=== PATIENT | male | born 1980 | race African-American/Black ===

== ENCOUNTER 2016-11-17 06:17 | Emergency (ER) | payer MEDICAID, OTHER ==
[2016-11-17 07:02] VITALS: BP 130/82
--- NOTE | 2016-11-17 07:15 | RAD ---
Right RIBS with chest, 3 views, 11/17/2016: History: Rib pain There is a fracture of the posterolateral aspect of the right sixth rib. The fracture appears to be recent. No other rib abnormality is detected. There is no evidence of underlying pneumothorax, hemothorax or pulmonary infiltrate. The heart size is normal. IMPRESSION: Right sixth rib fracture
[2016-11-17] MEDS ORDERED: IBUP800T PO (07:18)
[2016-11-17] MEDS ORDERED: HYDR-971 PO (07:18)
--- NOTE | 2016-11-17 07:29 | ED.ADGEN ---
Past History Past Medical History: No Pertinent History Past Surgical History: Other Alcohol Use: None Drug Use: None Adult General Chief Complaint Chief Complaint Right side pain HPI HPI Patient is a 36 year old male who presents with right side pain. Patient does not recall any injury, fall, no significant cough, no fevers. He's had symptoms for several days. He's not attempted any symptom controlling medication. He denies any illness. Pain is localized to his right lateral side and lateral mid back, worsens with deep inspiration or cough Review of Systems Review of Systems Constitutional: Denies fever or chills [] Eyes: Denies change in visual acuity, redness, or eye pain [] HENT: Denies nasal congestion or sore throat [] Respiratory: Denies cough or shortness of breath [] Cardiovascular: No additional information not addressed in HPI [] GI: Denies abdominal pain, nausea, vomiting, bloody stools or diarrhea [] : Denies dysuria or hematuria [] Musculoskeletal: Denies back pain or joint pain [] Integument: Denies rash or skin lesions [] Neurologic: Denies headache, focal weakness or sensory changes [] Endocrine: Denies polyuria or polydipsia [] Allergies Allergies Allergies Coded Allergies Type Severity Reaction Last Updated Verified No Known Allergies Allergy Unknown 11/17/16 Yes Physical Exam Physical Exam Constitutional: Well developed, well nourished, no acute distress, non-toxic appearance. [] HENT: Normocephalic, atraumatic, bilateral external ears normal, oropharynx moist, no oral exudates, nose normal. [] Eyes: PERRLA, EOMI, conjunctiva normal, no discharge. [] Neck: Normal range of motion, no tenderness, supple, no stridor. [] Cardiovascular:Heart rate regular with regular rhythm, no murmur [] Lungs & Thorax: Bilateral breath sounds clear to auscultation, moderate air movement, tenderness to palpation in the right lateral mid back consistent with possible rib fracture Abdomen: soft, no tenderness, no masses, no pulsatile masses. [] Skin: Warm, dry, no erythema, no rash. [] Back: No midline tenderness, no CVA tenderness. [] Extremities: No tenderness, no cyanosis, no clubbing, ROM intact, no edema. [] Neurologic: Alert and oriented X 3, normal motor function, normal sensory function, no focal deficits noted. [] Psychologic: Affect normal, judgement normal, mood normal. [] Current Patient Data Vital Signs Vital Signs Date Time Temp Pulse Resp B/P Pulse Ox O2 Delivery O2 Flow Rate FiO2 11/17/16 07:02 68 20 130/82 100 Room Air 11/17/16 06:32 98.0 EKG EKG [] Radiology/Procedures Radiology/Procedures [] 5 view right rib and AP view reviewed by me shows sixth rib fracture, no significant displacement, no pneumothorax, no infiltrate, normal cardiac silhouette Course & Med Decision Making Course & Med Decision Making Pertinent Labs and Imaging studies reviewed. (See chart for details) Patient has rib fracture of unknown etiology. I counseled patient on pain medication and the need to take deep inspiration several times a day. Patient was given ibuprofen and [place], instructed not to drive while taking. Referral sheet for follow-up given to the patient. Final Impression Final Impression Acute rib fracture [] Problems: Dragon Disclaimer Dragon Disclaimer This electronic medical record was generated, in whole or in part, using a voice recognition dictation system. CORA PIERRE MD Nov 17, 2016 07:29
== END 2016-11-17 07:20 | disposition home or self-care (01) ==
LOC: ER 06:24
DX: S22.31XA Fracture of one rib, right side, initial encounter for closed fracture (principal); X58.XXXA Exposure to other specified factors, initial encounter; Y93.89 Activity, other specified; Y99.8 Other external cause status; Y92.89 Other specified places as the place of occurrence of the external cause
CPT/HCPCS: 71101; 99284

== ENCOUNTER 2021-02-09 10:09 | Emergency (ER) | payer MEDICAID, OTHER ==
[~2021-02-09] VITALS: Ht 188 cm; Wt 66.4 kg
[~2021-02-09 10:09] MED LIST: HYDR-3165 PO; IBUP800T19 PO
[2021-02-09] MEDS ORDERED: IOHEXOL 240 MG/ML 50ML VIAL. ONE (10:55)
[2021-02-09] MEDS ORDERED: IV NORMAL SALINE 1,000ML 1,000 ML IV ONE (11:00)
[2021-02-09] MEDS ORDERED: IOHEXOL 240 MG/ML 50ML VIAL. PO ONE (11:00)
[2021-02-09] MEDS ORDERED: ONDANSETRON PF 4 MG/2 ML VIAL. IVP ONE (11:00)
[2021-02-09] MEDS ORDERED: IOHEXOL 300 MG/ML 75 ML VIAL. IV ONE (11:00)
[2021-02-09 11:04] LABS: BASO % 0 % (0-3); EOS # 0.1 x10^3/uL (0.0-0.7); EOS % 1 % (0-3); HEMATOCRIT 49.1 % (39.0-53.0); HEMOGLOBIN 16.3 g/dL (13.0-17.5); LYMPH # 1.5 x10^3/uL (1.0-4.8); LYMPH % 9 % (24-48); MEAN CORPUSCULAR HEMOGLOBIN 30 pg (25-35); MEAN CORPUSCULAR HGB CONC 33 g/dL (31-37); MEAN CORPUSCULAR VOLUME 90 fL (79-100); MONO # 0.9 x10^3/uL (0.0-1.1); MONO % 6 % (0-9); NEUT # 13.8 x10^3uL (1.8-7.7); NEUT % 85 % (31-73); PLATELET COUNT 301 x10^3/uL (140-400); RED BLOOD COUNT 5.46 x10^6/uL (4.30-5.70); RED CELL DISTRIBUTION WIDTH 14.8 % (11.5-14.5); WHITE BLOOD COUNT 16.2 x10^3/uL (4.0-11.0)
[2021-02-09] MEDS ORDERED: CONTRAST GIVEN. MC PRN (11:15)
[2021-02-09 11:35] LABS: % BANDS 2 % (0-9); % EOS 2 % (0-5); % LYMPHS 16 % (24-48); % MONOS 5 % (0-10); % SEGS 75 % (35-66); PLT ESTIMATE ADEQUATE (ADEQUATE)
--- NOTE | 2021-02-09 11:35 | PHYS DOC ---
Past History Past Medical History: No Pertinent History Past Surgical History: Other Additional Past Surgical Histo: knee surgery Alcohol Use: None Drug Use: None Adult General Chief Complaint Chief Complaint: NAUSEA/VOMITING/[facility] HPI Patient is a 40-year-old male who presents to the emergency room complaining of periumbilical abdominal pain, nausea, vomiting. Patient states that last night he was feeling normal. He woke up this morning with severe vomiting and nausea. He states he has been unable to keep anything anything down since this started. Periumbilical pain is an 8 out of 10 and sharp in nature. He states it has been constant since onset. Pain started shortly after vomiting. He has not had any diarrhea, constipation, fever, cough, shortness of breath. He has had some chills and sweats. Review of Systems Review of Systems Complete ROS is negative unless otherwise documented in HPI Current Medications Current Medications Current Medications Medications (Trade) Dose Ordered Sig/Maryellen Start Time Stop Time Status Last Admin Dose Admin Info (Do NOT chart on this entry -- for MONITORING) 1 each PRN DAILY PRN 02/09/21 11:15 02/11/21 11:14 Iohexol (Omnipaque 240 Mg/ml) 50 ml 1X ONCE 02/09/21 11:00 02/09/21 11:01 DC Iohexol (Omnipaque 300 Mg/ml) 75 ml 1X ONCE 02/09/21 11:00 02/09/21 11:01 DC Ondansetron HCl (Zofran) 4 mg 1X ONCE 02/09/21 11:00 02/09/21 11:01 DC 02/09/21 10:55 4 MG Sodium Chloride 1,000 ml @ 1,000 mls/hr 1X ONCE 02/09/21 11:00 02/09/21 11:59 02/09/21 10:54 1,000 MLS/HR Allergies Allergies Allergies Coded Allergies Type Severity Reaction Last Updated Verified No Known Allergies Allergy Unknown 02/09/21 Yes Physical Exam Physical Exam General: Awake, alert, NAD. Well Nourished, well hydrated. Cooperative HEENT: Atraumatic, EOMI, PERRL, airway patent, moist oral mucosa Neck: Supple, trachea midline Respiratory: CTA bilaterally, normal effort, no wheezing/crackles CV: RRR, no murmur, cap refill <2 GI: Soft, nondistended, periumbilical pain MSK: No obvious deformities Skin: Warm, dry, intact Neuro: A&O x3, speech NL, sensory and motor grossly intact, no focal deficits Psych: Normal affect, normal mood, not suicidal or homicidal Current Patient Data Vital Signs Vital Signs Date Time Temp Pulse Resp B/P (MAP) Pulse Ox O2 Delivery O2 Flow Rate FiO2 02/09/21 10:53 72 20 101/74 (83) 95 Room Air 02/09/21 10:20 97.5 Lab Results Laboratory Tests Test 02/09/21 10:45 White Blood Count 16.2 x10^3/uL (4.0-11.0) H Red Blood Count 5.46 x10^6/uL (4.30-5.70) Hemoglobin 16.3 g/dL (13.0-17.5) Hematocrit 49.1 % (39.0-53.0) Mean Corpuscular Volume 90 fL (79-100) Mean Corpuscular Hemoglobin 30 pg (25-35) Mean Corpuscular Hemoglobin Concent 33 g/dL (31-37) Red Cell Distribution Width 14.8 % (11.5-14.5) H Platelet Count 301 x10^3/uL (140-400) Neutrophils (%) (Auto) 85 % (31-73) H Lymphocytes (%) (Auto) 9 % (24-48) L Monocytes (%) (Auto) 6 % (0-9) Eosinophils (%) (Auto) 1 % (0-3) Basophils (%) (Auto) 0 % (0-3) Neutrophils # (Auto) 13.8 x10^3uL (1.8-7.7) H Lymphocytes # (Auto) 1.5 x10^3/uL (1.0-4.8) Monocytes # (Auto) 0.9 x10^3/uL (0.0-1.1) Eosinophils # (Auto) 0.1 x10^3/uL (0.0-0.7) Basophils # (Auto) 0.0 x10^3/uL (0.0-0.2) Platelet Estimate Pending EKG EKG [] Radiology/Procedures Radiology/Procedures [] Heart Score C/O Chest Pain: N/A Risk Factors: Risk Factors: DM, Current or recent (<one month) smoker, HTN, HLP, family history of CAD, obesity. Risk Scores: Risk Factors: DM, Current or recent (<one month) smoker, HTN, HLP, family history of CAD, obesity. Course & Med Decision Making Course & Med Decision Making Pertinent Labs and Imaging studies reviewed. (See chart for details) [] Patient is a 40-year-old previous healthy male who presents to the emergency room complaining of periumbilical pain with nausea and vomiting. Patient is actively vomiting upon arrival. Differential diagnosis includes gastroenteritis, gastritis, cholecystitis, appendicitis. CT abdomen pelvis and abdominal lab work were done. Work-up shows signs of gastroenteritis. Patient is feeling significantly better after fluids and nausea medicine. Patient's test results and vitals while in the ED were fully reviewed and discussed with the patient. Patient is stable and at this time does not need admission to the hospital. We have discussed strict return precautions and the importance of following up with their Primary Care Physician. Patient stated understanding and was given an opportunity to ask any questions. Patient is in agreement with plan. Dragon Disclaimer Dragon Disclaimer This electronic medical record was generated, in whole or in part, using a voice recognition dictation system. Departure Departure: Impression: Primary Impression: Gastroenteritis Disposition: HOME / SELF CARE / HOMELESS Condition: IMPROVED Referrals: PCP,JONATHAN (PCP) JORDAN CATHERINE MD Patient Instructions: Viral Gastroenteritis Additional Instructions: Please follow up in [address] of your abdomen to re-evaluate your liver cysts Scripts Ondansetron (ONDANSETRON ODT) 4 Mg Tab.rapdis 1 TAB PO PRN Q6-8HRS for nausea, #16 TAB Prov: XANDER SR MD 02/09/21 XANDER SR MD Feb 09, 2021 11:35
[2021-02-09 11:36] LABS: CALCIUM 8.7 mg/dL (8.5-10.1); CREATININE 1.3 mg/dL (0.7-1.3); GFR 74.8; POTASSIUM 3.7 mmol/L (3.5-5.1)
[2021-02-09 11:42] LABS: ALBUMIN 3.7 g/dL (3.4-5.0); ALBUMIN/GLOBULIN RATIO 0.9 (1.0-1.7); TOTAL BILIRUBIN 0.3 mg/dL (0.2-1.0); TOTAL PROTEIN 7.9 g/dL (6.4-8.2)
[2021-02-09 13:09] LABS: BARBITURATES NEG (NEG); BENZODIAZEPINES NEG (NEG); CANNABINOIDS POS (NEG); COCAINE NEG (NEG); METHADONE NEG (NEG); OPIATES NEG (NEG); PHENCYCLIDINE NEG (NEG)
[2021-02-09 13:15] LABS: BACTERIA,URINE 0 /HPF (0-FEW); BILIRUBIN,URINE NEG (NEG); CLARITY,URINE CLOUDY; COLOR,URINE YELLOW; GLUCOSE,URINE NEG (NEG); NITRITE,URINE NEG (NEG); RBC,URINE 0 /HPF (0-2); UROBILINOGEN,URINE 0.2 mg/dL (0.2 mg/dL); WBC,URINE 0 /HPF (0-4)
--- NOTE | 2021-02-09 13:15 | RAD ---
INDICATION: Reason: periumbiliucal abd pain with vomiting- STARTED DRINKING AT 1145 / Spl. Instructio ns: DRINKING @11 / History: . COMPARISON: None. TECHNIQUE: Axial CT images obtained through the abdomen and pelvis with contrast. One or more of the following individualized dose reduction techniques were utilized for this examinat ion: 1. Automated exposure control; 2. Adjustment of the mA and/or kV according to patient size; 3 . Use of iterative reconstruction technique. FINDINGS: There are some cystic changes at the lung bases. Abdominal aorta is not aneurysmal. Multifocal plaque is seen. Innumerable subcentimeter low-density lesions scattered throughout the liver. No peripancreatic fluid collection. Spleen is unremarkable. No hydronephrosis. Urinary bladder is partially distended. Fluid is seen throughout the large and small bowel. The possible appendix does not appear dilated. There is some degenerative changes the spine with disc protrusions and early osteophyte formation. IMPRESSION: * There is prominent fluid seen throughout the large and small bowel which could be from liquid stoo l. No CT evidence of bowel obstruction. * Innumerable small low-density lesions at the liver with indeterminate appearance. Could be from ca uses such as small cysts or biliary hamartoma but other causes not excluded. Follow-up could be obtai liat to ensure no increase in this finding. Electronically signed by: Adolph Crowder MD (02/09/2021 1:13 PM) [id number]
[2021-02-09 13:16] LABS: AMORPHOUS SEDIMENT,UR PRESENT /HPF
[2021-02-09 13:17] LABS: AMPHETAMINE/METHAMPHETAMINE NEG (NEG)
[2021-02-09 13:21] VITALS: BP 114/73
[2021-02-09] MEDS ORDERED: ONDA4TAB12 PO (13:43)
== END 2021-02-09 13:53 | disposition home or self-care (01) ==
LOC: ER 10:09
DX: K52.9 Noninfective gastroenteritis and colitis, unspecified (principal)
CPT/HCPCS: 36415; 74177; 80053; 80307; 81001; 83690; 85007; 85025; 96361; 96374; 99285; G0480; J2405; J7030; Q9966; Q9967